=== PATIENT | male | born 1990 | race Caucasian/White ===

== ENCOUNTER 2018-01-21 22:39 | Emergency (ER) | payer OTHER, SELFPAY ==
[2018-01-21 22:40] VITALS: BP 143/83; PULSE 69; RESP 20; TEMP 37.1; O2SAT 100; BMI 25.0
--- NOTE | 2018-01-21 23:34 | CT_ITS ---
STUDY: CT BRAIN WITHOUT CONTRAST REASON FOR EXAM: Male, 27 years old. Headache for 3 days. RADIATION DOSAGE (If Supplied By Facility): CTDIvol = ( 44.99 ) mGy, DLP = ( 779.24 ) mGycm TECHNIQUE: Transaxial CT imaging of the brain was performed without administration of intravenous contrast material. Individualized dose optimization techniques were used for this CT. COMPARISON: None. FINDINGS: Normal soft tissue structures. Normal calvarium. Normal size ventricles and extra-axial spaces for the patient's age. Normal white matter tracts of the cerebral hemispheres. Normal basal ganglia and thalami. Normal brainstem. Normal cerebellum. There is no intracranial hemorrhage. There are no findings of an acute ischemic infarction. Normal visualized paranasal sinuses. CT/Brain/Head without Contrast IMPRESSION: Normal unenhanced CT scan of the brain. Electronically Signed: Trent Magana MD at 0:03 EDT , Service support ,
--- NOTE | 2018-01-21 23:35 | ED.VISSUMM ---
- ER Visit Summary Date of Service: 01/21/18 Chief Complaint: [] Headache History of Present Illness: The patient is a 27 M [] complaining of headache for the last 30 hours. Gradual onset continuous. He has had similar headaches but not this intense. It is a throbbing sensation in his frontal region and somewhat behind his eyes. Is worsened by light. Relieved with dark. He did work today throughout the day. He works in a pizza shop. He does have some photophobia tonight. It seems to wax and wane. He had one remote migraines similar 5 years ago. He has never had imaging. He has been trying intermittent Excedrin and ibuprofen with minimal relief. Patient also noted he had left upper back rash that his saw when he got out of the shower 5 days ago. He has been asymptomatic. There is no pain burning or itching. He has had chickenpox as a child. Physical Examination: [] Vital signs reviewed General: Well-nourished well-developed Head: Normocephalic atraumatic Eyes: Pupils equal round and reactive to light extraocular movements intact ENT: TMs clear no hemotympanum no trauma Neck: Nontender full range of motion Cardiovascular: Regular rate rhythm no murmurs normal S1-S2 Respiratory: No distress clear to auscultation bilaterally chest nontender Abdomen: Soft nontender nondistended normal bowel sounds no masses Back: Nontender no CVA tenderness Extremities: Nontender active range of motion ?4 extremities no trauma Skin: Left mid thoracic paraspinal small patch of rash. It measures 1 x 1. There is mild vesicular nature to it suggestive of shingles. Neuro alert oriented cranial nerves II through XII intact normal strength sensation reflexes Test Results: [] Emergency Department Course and Treatment: [] CT head obtained. Patient given IV fluids Toradol Compazine and Benadryl. Placed on nasal cannula oxygen. Reevaluation his headache is resolved after an hour. CT head negative. At this time I do think the patient likely had a cluster headache versus migraine variant. However he does have a shingles-like rash on his left upper thoracic. This could be causing his headache as well. I do not think he has temporal herpes virus. I do not think he needs an emergent MRI. He is nontoxic resting comfortably. He will follow-up as an outpatient. He will be started on Valtrex as his is . He understands that this likely will not help the rashes is been there for 5 days. Treatment Plan: [] Disposition: [] Impression: [] Headache migraine Shingles rash posterior thoracic This note was generated with [employer] dictation software. It may contain incorrect words, spelling, and punctuation that were not noted in review of the chart prior to signing ED Disposition - Plan for ED Patient: Chief Complaint: Headache
[2018-01-21] MEDS: Ketorolac 30 MG/ML Syringe IV (23:41)
[2018-01-21] MEDS: proCHLORPERazine 10 MG/2 ML Vial IV (23:41)
[2018-01-21] MEDS: DiphenhydrAMINE 50 MG/ML Syringe IV (23:42)
[2018-01-21] MEDS: 0.9% Normal Saline 1,000 ML 999 ML IV (23:42)
[2018-01-21 23:44] VITALS: O2SAT 98
[2018-01-22 00:16] VITALS: RESP 18
--- NOTE | 2018-01-22 00:46 | ED.DEP ---
ED Disposition - Plan for ED Patient: Disposition: Home or Assisted Living Chief Complaint: Headache Instructions: ED Headache Migraine, Shingles (Herpes Zoster) Prescriptions: Valacyclovir HCl [Valtrex] 1,000 mg PO TID 7 Days tab Referrals: Celestino Gonzalez Jr., MD [Primary Care Provider] -
[2018-01-22 00:57] VITALS: PULSE 75; O2SAT 98
== END 2018-01-22 00:59 | disposition home or self-care (01) ==
PROVIDERS: Emergency Provider Emergency Medicine; Family Provider Internal Medicine; PCP Internal Medicine
DX: G43.909 Migraine, unspecified, not intractable, without status migrainosus (principal); B02.9 Zoster without complications
CPT/HCPCS: 70450; 96361; 96374; 96375; 99283; J7030; A4216

== ENCOUNTER 2020-10-28 14:56 | Outpatient (RCR) | payer OTHER, SELFPAY | END 2020-12-21 23:59 | LOC: IMMUN 14:56 | PROVIDERS: PCP Internal Medicine; Referring Provider Family Medicine; Visit Provider Family Medicine | DX: Z23 Encounter for immunization (principal) | CPT/HCPCS: 0001A; 0002A; 91300 ==

== ENCOUNTER 2023-08-26 10:51 | Emergency (ER) | payer OTHER, SELFPAY ==
[2023-08-26 10:53] VITALS: BP 131/85; PULSE 85; RESP 16; TEMP 36.2; O2SAT 97; BMI 27.7
--- NOTE | 2023-08-26 11:13 | RAD_ITS ---
HISTORY: left shoulder injury. TECHNIQUE: XR Shoulder Min 2 Views. COMPARISON: None. FINDINGS: BONES : No acute fracture identified. Mineralization unremarkable. JOINTS: No glenohumeral dislocation. No acromioclavicular subluxation. 1.6 cm periarticular ossification or loose body inferior to the glenohumeral joint SOFT TISSUES: Left lung apex clear. RAD/Shoulder min 2 Views IMPRESSION: No acute fracture or dislocation identified in the left shoulder. Electronically Signed: Shirlene Bee MD at 11:43 EST ,
--- NOTE | 2023-08-26 11:14 | EX.ED.UPPERE ---
HPI History of Present Illness HPI Narrative: 32-year-old male [id number]. Injured his left shoulder yesterday when to have it evaluated. He was running up climbing ramp when he fell with his left arm extended and has had pain in the shoulder since that time with decreased range of motion. Chief Complaint: Upper Extremity Injury Informant: patient Occured/Mechanism Mechanism/Context: Yes injury and Yes blunt trauma Onset/Context/Timing Onset: Yesterday Context: Sudden Onset Timing: Continuous Quality of Pain: Dull and Aching Current Severity: Mild Maximum Severity: Moderate Associated Symptoms Associated Symptoms: Negative for Parasthesia or Loss of Funtion Narrative Narrative: 32-year-old [id number] male no significant past medical history injured his shoulder yesterday running up a climbing ramp when he fell.No prior left shoulder history or surgery. Prior similar symptoms: No Recent Illness/Hospitalization: No PFSH PFSH Medical History no medical history no medical history Home Medications Multivitamins,Ther W-Minerals 07/10/14 [History Last Taken Unknown] valacyclovir 1 gram tablet 1,000 mg PO TID 7 days 01/22/18 [Rx Last Taken Unknown] Allergy/AdvReac Type Severity Reaction Status Date / Time No Known Allergies Allergy Verified 08/26/23 10:52 Surgical History no surgical history no surgical history Social History Smoking Status: Never smoker ROS ROS ED ROS Narrative Recent URI. Review of Systems ROS Unobtainable: Denies due to encephalopathy Constitutional Constitutional ED: Denies chills or fever(s) Eyes Eyes: Denies blurry vision ENT ENT ED: Denies ear pain Cardiovascular Cardiovascular: Denies chest pain or palpitations Respiratory/Chest Respiratory/Chest: Reports cough; Denies dyspnea Gastrointestinal Gastrointestinal: Denies abdominal pain Genitourinary Genitourinary ED: Denies dysuria Musculoskeletal Musculoskeletal: Denies back pain Integumentary Denies abscess Neurologic Neurologic: Denies headache(s) or paresthesias Hematologic/Lymphatic Hematologic/Lymphatic: Denies easy bleeding or easy bruising Allergic/Immunologic Allergic/Immunologic ED: Denies mouth swelling or tongue swelling EXAM Physical Exam Narrative Exam Narrative: 33-year-old male vital signs stable afebrile. HEENT exam unremarkable. Neck nontender. Back nontender. Lungs clear. Heart regular rhythm no murmur. Chest wall and ribs nontender. Abdomen soft nontender. Moving all 4 extremities. He really does not have significant pain to the shoulder itself. He can do full flexion extension at the elbow and the wrist. He has normal leaf size picker strength of his left hand. Normal sensation and radial pulse. There is no bony deformity. He cannot lift his left hand over his shoulder due to pain. He stops it just below shoulder level.Other extremities are normal with normal range of motion. Const Vital Signs: 08/26/23 10:53 Temperature 97.2 F L Temperature Source Temporal Pulse Rate 85 Respiratory Rate 16 Blood Pressure 131/85 H Blood Pressure Mean 100 Pulse Ox 97 Oxygen Delivery Method Room Air Positive well nourished and well developed; Negative for obese, cachectic, contractures or unkempt General Appearance ED: well developed and NAD; Negative for unkempt, cachectic, contractures, cyanotic or diaphoretic Nutritional Appearance: Negative for cachectic or obese HEENT Reports moist mucous membranes normocephalic and atraumatic; Negative for trauma or tenderness Eyes PERRL and EOMs intact bilaterally General Eye ED: Negative for other Neck full ROM and supple General: Negative for tenderness Lymph Lymphatic: Negative for other Chest Wall inspection of chest normal and palpation of chest normal Chest: Negative for other Resp normal respiratory effort and clear to auscultation bilaterally Effort and Inspection: Negative for pain with movement Auscultation: Negative for rales, rhonchi, wheezes or diminished lung sounds Cardio regular rate, regular rhythm, S1 normal heart sound, S2 normal heart sound and no murmurs Rate: Negative for bradycardia or tachycardic Rhythm: Negative for abnormal rhythm GI non-tender, non-distended and no masses Inspection: Negative for abdominal distention Auscultation: normoactive bowel sounds Palpation: soft; Negative for tender or guarding Bladder / Kidney Exam: No other Back/Spine no CVA tenderness General Back: Negative for CVA tenderness Cervical Spine: Negative for cervical spine tenderness and Negative for other Thoracic Spine / Upper Back: Negative for thoracic spinal tenderness Lumbar Spine / Lower Back: Negative for lumbar spinal tenderness Extremity normal to inspection and full ROM Extremity Narrative: Left shoulder nontender. No deformity. No obvious dislocation. He does have limited range of motion with elevation of the shoulder due to discomfort. General Extremety ED: Negative for edema or other findings General Extremity: Negative for edema or other findings Neuro oriented x3, CN's II-XII intact bilaterally, moves all extremities, no focal motor deficits and no sensory deficits noted Sensorium / Orientation: alert, oriented to person, oriented to place and oriented to time; Negative for orientation impaired or lethargic Motor Exam: strength 5/5 throughout Psych mental status grossly normal Appearance: Negative for unkempt Attitude: No agitated Mood & Affect: Negative for depressed, anxious or tearful Skin General Skin Exam: Negative for petechiae Lesions: no lesions Rashes: no rashes Trauma: no lacerations or abrasions; Negative for abrasion or laceration MDM MDM MDM Narrative Medical decision making narrative: 32-year-old male [id number] injured her shoulder yesterday. Has decreased range of motion due to discomfort. X-ray being obtained. This could be a strain. Less likely but potential rotator cuff or other internal shoulder injury. Repeat exam unchanged. Patient was placed in a sling. We discussed his x-ray. There is no fracture. No dislocation there may or may not be a lateral Hill-Sachs deformity. Outpatient follow-up with Dr. Bryant of orthopedics who the patient has established relationship with. Mara for pain and ice. Radiography Diagnostic Testing: Left shoulder x-ray 3 views interpreted by myself the radiologist shows no fracture or dislocation. There is a possible Hill-Sachs deformity of the left lateral humeral head.I went over the x-ray with the patient. Discharge Plan Triage Chief Complaint: Upper Extremity Injury ED Provider: Carlos Pina Dx/Rx/DC Orders Clinical Impression: Sprain of left shoulder Instructions: ED Sprain AC Joint Prescriptions: No Action Multivitamins,Ther W-Minerals valacyclovir 1,000 MG tablet 1,000 mg PO TID 7 Days 0RF Primary Care Provider: Davidson Bo Referrals: Hans Bryant DO [Med Staff - Active Staff] - 1-2 Weeks Davidson Bo MD [Primary Care Provider] - Activity Restrictions/Additional Instructions: You have a sprained shoulder. It is possible that you may have partially subluxed her shoulder. The x-ray does not show any broken bones or dislocation at this time. The lateral aspect of your shoulder may be consistent with a Hill-Sachs deformity which could be caused from a dislocation that reduced Or subluxation. Follow-up with Dr. Bryant. He can review your x-rays and review your shoulder exam. Your range of motion should start coming back if it does not and you are still having significant pain he will decide if he needs to get an MRI. Sling for comfort. Off to shower and sleep. Motrin for pain and inflammation. Disposition Disposition: Home, Self Care
--- OUTSIDE RECORDS SUMMARY | 2023-08-26 11:34 | XMS RPT_ITS | CCD ---
Author Name Unknown Address [facility] [place] [address] Organization [facility] Care Team Providers Care Remnants Cutter Name Role Phone Carlos Gamez MD, Celestino Hernandez Primary Care Provider Anupam IRIZARRY, Kim Evans Primary Care Provider [phone] KIM BO Primary Care Unavailable Allergies Allergy Classification Reported Allergen(s) Allergy Type Date of Onset Reaction(s) Facility (5 sources) Sulfonamides (Antibiotic); Translations: [SULFA (SULFONAMIDE ANTIBIOTICS)] Propensity to adverse reactions 6 Intolerance [facility] Work Phone: (1 source) enviromental [Other] Propensity to adverse reactions 6 [facility] Work Phone: (1 source) OTHER; Translations: [OTHER] Propensity to adverse reactions (disorder) 6 [facility] Repository Medications Current Medications Medication Drug Class(es) Dates Sig (Normalized) Sig (Original) amoxicillin 500 mg oral capsule (3 sources) Penicillin-class Antibacterial Start: 06-06-2023 End: 06-16-2023 take 1 capsule by mouth twice daily amoxicillin (AMOXIL) 500 mg capsule Take 1 capsule by mouth two times a day for 10 days. 20 capsule 0 06/06/2023 06/16/2023 Active Completed/Discontinued Medications Medication Drug Class(es) Dates Sig (Normalized) Sig (Original) loratadine 10 mg oral tablet (4 sources) Start: 01-18-2007 take 1 tablet by mouth once daily as needed loratadine (CLARITIN) 10 mg ORAL Tab Take one(1) tablet daily as needed for allergy symptoms. 0 01/18/2007 Active Problems Problem Classification Problem Date Documented Da te Episodic/Chronic Other upper respiratory infections (1 source) Streptococcal sore throat; Translations: [Streptococcal pharyngitis] 06-06-2023 Episodic Results Test Name Value Interpretation Reference Range Facil ity Vital Signs Date Time Vital Sign Value Performing Clinician Juanita watson 06-06-2023 11:28-0500 Body temperature 97.7 [degF] Josseline Harris [employer] Work Phone: [facility] 06-06-2023 11:28-0500 Body weight 97.25 kg Josselinerobert Harris [employer]CH[employer] Work Phone: [facility] 06-06-2023 11:28-0500 Diastolic blood pressure 80 mm[Hg] Josseline Harris [employer] ME[employer] Work Phone: [facility] 06-06-2023 11:28-0500 Heart rate 76 /min Josseline Harris [employer] Work Phone: [facility] 06-06-2023 11:28-0500 Respiratory rate 16 /min Josseline Harris [employer] MECH[employer] Work Phone: [facility] 06-06-2023 11:28-0500 SaO2% (BldA) [Mass fraction] 96 % Josseline Harris [employer] MECH[employer] Work Phone: [facility] 06-06-2023 11:28-0500 Systolic blood pressure 112 mm[Hg] Josseline Harris [employer] Work Phone: [facility] Encounters Encounter Date Encounter Type Care Provider Facility Start: 06-13-2023 Telephone encounter Kim Bo MD Work Phone: [facility] Procedures Date Procedure Procedure Detail Performing Clinician Start: 06-06-2023 STREP A MOLECULAR (POC) Josseline Harris [employer] Work Phone: Plan of Treatment Date Care Activity Detail Author Start: 06-06-2023 End: 06-20-2023 COVID & INFLUENZA A/B & RSV NAAT, ROUTINE [facility] Work Phone: Immunizations Immunization Date Immunization Notes Care Provider Shelby gutierres 04-24-2022 influenza, injectabl e, quadrivalent, contains preservative Josseline Harris [employer] Work Phone: [facility] 04-24-2022 influenza virus vacc ine, unspecified formulation Josseline Harris [employer] Work Phone: [facility] 11-24-2020 COVID-19 original vaccine, age 12+ yr, monovalent (PFIZER-BIONTECH - PURPLE TOP) Josseline Harris [employer] MECH[employer] Work Phone: [facility] 10-28-2020 COVID-19 original vaccine, age 12+ yr, monovalent (PFIZER-BIONTECH - PURPLE TOP) Josseline Harris [employer] MECH[employer] Work Phone: [facility] Payers Date Payer Category Payer Unknown MMO M[employer] PPO [id number] 2021-Present [phone] [address] [place] [address] PPO [id number] 2021 Unknown [id number] Social History Date Type Detail Facility Start: 04-24-2022 Tobacco smoking stat [facility] Never smoked tobacco [facility] Start: 10-02-2015 End: 06-06-2023 Alcohol intake Current drinker of alcohol (finding) [facility] Start: 01-25-2007 History SDOH Alcohol Comment rare [facility] Start: 1990 Sex Assigned At Not on file [facility] Start: 04-24-2022 Tobacco use and exposure Smokeless tobacco non-user [facility] Start: 08-11-2022 End: 06-06-2023 History of Social function [facility] Work Phone: Start: 08-11-2022 End: 06-06-2023 Tobacco use panel [facility] Work Phone: Adult Depression Screening Assessment 0 [facility] Work Phone: Note 06-13-2023 Telephone Encounter - Cora Langley RN - 06/13/2023 10:15 AM ESTTelephone Encounter - Stanislaw Gaxiola - 06/13/2023 10:06 AM ESTTelephone Encounter - Kim Bo MD - 06/13/2023 9:36 AM EST Note Date & Type Note Facility 06-13-2023 Miscellaneous Notes Formattin g of this note might be different from the original. Patient returns call and provider message reviewed. Patient verbalizes understanding. Cora Langley RN Left message to return call to office. Stanislaw Gaxiola Agree. Usually for one day of sinus congestion, we ordinarily would not start an antibiotic but if he had symptoms of sinus congestion for one to two weeks, amoxil would also be the drug of choice. Patient reports he was seen in on 06-06 and treated with amoxicillin for strep throat. His throat has improved, but yesterday and this morning, having sinus pressure, sinus LONG, and blowing out vibrant yellow/green mucous (no other symptoms). Asking if the amoxicillin would help with these symptoms. Did advise patient if the sinus symptoms are related to a virus, the AB would not help, and he could try using saline flush, such as neti pot or simply saline, which is helpful in flushing out irritants in nose. Patient agreeable, but would like pcp opinion on this. Please advise patient. documented in this encounter [facility] Note 06-07-2023 Telephone Encounter - Sophy Storey LPN - 06/07/2023 8:03 AM ESTTelephone Encounter - Jennifer Hair APRN.CNP - 06/07/2023 7:57 AM EST Note Date & Type Note Facility 06-07-2023 Miscellaneous Notes Formattin g of this note might be different from the original. Patient notified.Sophy Storey LPN Please notify of negative covid, flu, and rsv test. Continue comfort measures for symptoms as you would for a cold. Any worsening symptoms follow up with PCP or ER. Jennifer Hair APRN.MARGARET documented in this encounter [facility] Progress note 06-06-2023 Note Date & Type Note Facility 06-06-2023 Note HNO ID: [id number] Author: Josseline Harris APRN.MARGARET Service: ? Author Type: Nurse Practitioner Type: Progress Notes Filed: 06/06/2023 1:31 PM Note Text: This note was created using PerceptiMedriter. Subjective Gregorio Mercado is a 32 year old male. 32 year old female with no PMH presents for illness. Acute onset 3 days ago +sore throat +cough +runny nose +congestion +body aches Denies CP. Denies SOB Denies dyspnea Denies tobacco usage. The history is provided by the patient. No pediatric speech language pathologist was used. Cough This is a new problem. The current episode started more than 2 days ago. The problem occurs constantly. The problem has been gradually worsening. The cough is Non-productive. There has been no fever. Associated symptoms include headaches, rhinorrhea, sore throat and myalgias. Pertinent negatives include no chest pain, no chills, no sweats, no weight loss, no ear congestion, no ear pain, no shortness of breath, no wheezing and no eye redness. He has tried nothing for the symptoms. The treatment provided no relief. He is not a smoker. His past medical history does not include bronchitis, pneumonia, bronchiectasis, COPD, emphysema or asthma. PAST MEDICAL HISTORY Diagnosis Date allergic rhinitis 01/25/2007 PAST SURGICAL HISTORY Procedure Laterality Date PAST SURGICAL HISTORY OF 2001 Left knee - cyst removed ALLERGIES Sulfa (Sulfonamide Antibiotics) MEDICATIONS loratadine (CLARITIN) 10 mg ORAL Tab Take one(1) tablet daily as needed for allergy symptoms. amoxicillin (AMOXIL) 500 mg capsule Take 1 capsule by mouth two times a day for 10 days. FAMILY HISTORY Problem Relation Age of Onset None Father None Mother Cancer Paternal Grandfather Prostate None Paternal Grandmother Cancer Maternal Grandfather Esophageal None Maternal Grandmother Social History Tobacco Use Smoking status: Never Smokeless tobacco: Never Substance Use Topics Alcohol use: Yes Comment: rare Drug use: No Review of Systems Constitutional: Positive for fatigue and fever. Negative for chills and weight loss. HENT: Positive for congestion, rhinorrhea and sore throat. Negative for ear pain. Eyes: Negative for pain, discharge, redness and itching. Respiratory: Positive for cough. Negative for apnea, choking, chest tightness, shortness of breath and wheezing. Cardiovascular: Negative for chest pain, palpitations and leg swelling. Gastrointestinal: Negative for abdominal pain, diarrhea, nausea and vomiting. Musculoskeletal: Positive for myalgias. Negative for arthralgias and back pain. Skin: Negative for color change, pallor, rash and wound. Allergic/Immunologic: Negative for environmental allergies, food allergies and immunocompromised state. Neurological: Positive for headaches. Hematological: Negative for adenopathy. Does not bruise/bleed easily. Psychiatric/Behavioral: Negative for agitation and behavioral problems. Objective BP 112/80 Pulse 76 Temp 36.5 ?C (97.7 ?F) (Tympanic) Resp 16 Wt 97.3 kg (214 lb 6.4 oz) SpO2 96% BMI 29.08 kg/m? Physical Exam Vitals and nursing note reviewed. Constitutional: General: He is not in acute distress. Appearance: Normal appearance. He is not ill-appearing, toxic-appearing or diaphoretic. HENT: Head: Normocephalic and atraumatic. Right Ear: External ear normal. Left Ear: External ear normal. Nose: Congestion present. No rhinorrhea. Mouth/Throat: Mouth: Mucous membranes are moist. Pharynx: Oropharynx is clear. Posterior oropharyngeal erythema present. No oropharyngeal exudate. Eyes: General: Right eye: No discharge. Left eye: No discharge. Extraocular Movements: Extraocular movements intact. Conjunctiva/sclera: Conjunctivae normal. Pupils: Pupils are equal, round, and reactive to light. Cardiovascular: Rate and Rhythm: Normal rate and regular rhythm. Pulses: Normal pulses. Heart sounds: Normal heart sounds. No murmur heard. No friction rub. No gallop. Pulmonary: Effort: Pulmonary effort is normal. No respiratory distress. Breath sounds: Normal breath sounds. No stridor. No wheezing, rhonchi or rales. Chest: Chest wall: No tenderness. Abdominal: General: Abdomen is flat. There is no distension. Palpations: Abdomen is soft. There is no mass. Tenderness: There is no abdominal tenderness. There is no guarding or rebound. Hernia: No hernia is present. Musculoskeletal: General: No swelling, tenderness, deformity or signs of injury. Normal range of motion. Cervical back: Normal range of motion and neck supple. No rigidity or tenderness. Right lower leg: No edema. Left lower leg: No edema. Lymphadenopathy: Cervical: Cervical adenopathy present. Skin: General: Skin is warm and dry. Capillary Refill: Capillary refill takes less than 2 seconds. Coloration: Skin is not jaundiced or pale. Findings: No bruising, lesion or rash. Neurological: (more content not included)... [facility] History of Present illness Narrative 06-06-2023 Josseline Harris APRN.[facility] - 06/06/2023 11:33 AM EST Note Date & Type Note Facility 06-06-2023 History of Presen t illness Narrative This note was created using Naartjie. Subjective Gregorio Mercado is a 32 year old male. 32 year old female with no PMH presents for illness. Acute onset 3 days ago +sore throat +cough +runny nose +congestion +body aches Denies CP. Denies SOB Denies dyspnea Denies tobacco usage. The history is provided by the patient. No pediatric speech language pathologist was used. Cough This is a new problem. The current episode started more than 2 days ago. The problem occurs constantly. The problem has been gradually worsening. The cough is Non-productive. There has been no fever. Associated symptoms include headaches, rhinorrhea, sore throat and myalgias. Pertinent negatives include no chest pain, no chills, no sweats, no weight loss, no ear congestion, no ear pain, no shortness of breath, no wheezing and no eye redness. He has tried nothing for the symptoms. The treatment provided no relief. He is not a smoker. His past medical history does not include bronchitis, pneumonia, bronchiectasis, COPD, emphysema or asthma. PAST MEDICAL HISTORY Diagnosis Date allergic rhinitis 01/25/2007 PAST SURGICAL HISTORY Procedure Laterality Date PAST SURGICAL HISTORY OF 2001 Left knee - cyst removed ALLERGIES Sulfa (Sulfonamide Antibiotics) MEDICATIONS loratadine (CLARITIN) 10 mg ORAL Tab Take one(1) tablet daily as needed for allergy symptoms. amoxicillin (AMOXIL) 500 mg capsule Take 1 capsule by mouth two times a day for 10 days. FAMILY HISTORY Problem Relation Age of Onset None Father None Mother Cancer Paternal Grandfather Prostate None Paternal Grandmother Cancer Maternal Grandfather Esophageal None Maternal Grandmother Social History Tobacco Use Smoking status: Never Smokeless tobacco: Never Substance Use Topics Alcohol use: Yes Comment: rare Drug use: No Review of Systems Constitutional: Positive for fatigue and fever. Negative for chills and weight loss. HENT: Positive for congestion, rhinorrhea and sore throat. Negative for ear pain. Eyes: Negative for pain, discharge, redness and itching. Respiratory: Positive for cough. Negative for apnea, choking, chest tightness, shortness of breath and wheezing. Cardiovascular: Negative for chest pain, palpitations and leg swelling. Gastrointestinal: Negative for abdominal pain, diarrhea, nausea and vomiting. Musculoskeletal: Positive for myalgias. Negative for arthralgias and back pain. Skin: Negative for color change, pallor, rash and wound. Allergic/Immunologic: Negative for environmental allergies, food allergies and immunocompromised state. Neurological: Positive for headaches. Hematological: Negative for adenopathy. Does not bruise/bleed easily. Psychiatric/Behavioral: Negative for agitation and behavioral problems. Objective BP 112/80 Pulse 76 Temp 36.5 C (97.7 F) (Tympanic) Resp 16 Wt 97.3 kg (214 lb 6.4 oz) SpO2 96% BMI 29.08 kg/m Physical Exam Vitals and nursing note reviewed. Constitutional: General: He is not in acute distress. Appearance: Normal appearance. He is not ill-appearing, toxic-appearing or diaphoretic. HENT: Head: Normocephalic and atraumatic. Right Ear: External ear normal. Left Ear: External ear normal. Nose: Congestion present. No rhinorrhea. Mouth/Throat: Mouth: Mucous membranes are moist. Pharynx: Oropharynx is clear. Posterior oropharyngeal erythema present. No oropharyngeal exudate. Eyes: General: Right eye: No discharge. Left eye: No discharge. Extraocular Movements: Extraocular movements intact. Conjunctiva/sclera: Conjunctivae normal. Pupils: Pupils are equal, round, and reactive to light. Cardiovascular: Rate and Rhythm: Normal rate and regular rhythm. Pulses: Normal pulses. Heart sounds: Normal heart sounds. No murmur heard. No friction rub. No gallop. Pulmonary: Effort: Pulmonary effort is normal. No respiratory distress. Breath sounds: Normal breath sounds. No stridor. No wheezing, rhonchi or rales. Chest: Chest wall: No tenderness. Abdominal: General: Abdomen is flat. There is no distension. Palpations: Abdomen is soft. There is no mass. Tenderness: There is no abdominal tenderness. There is no guarding or rebound. Hernia: No hernia is present. Musculoskeletal: General: No swelling, tenderness, deformity or signs of injury. Normal range of motion. Cervical back: Normal range of motion and neck supple. No rigidity or tenderness. Right lower leg: No edema. Left lower leg: No edema. Lymphadenopathy: Cervical: Cervical adenopathy present. Skin: General: Skin is warm and dry. Capillary Refill: Capillary refill takes less than 2 seconds. Coloration: Skin is not jaundiced or pale. Findings: No bruising, lesion or rash. Neurological: General: No focal deficit present. Mental Status: He is alert and oriented to person, place, and time. Cranial Nerves: No cranial nerve deficit. Sensory: No sensory deficit. Motor: No weakness. Coordination: Coordination normal. Gait: Gait normal. Deep Tendon Reflexes: Reflexes normal. Psychiatric: Mood and Affect: Mood normal. Behavior: Behavior normal. Thought Content: Thought content normal. Assessment and Plan ASSESSMENT/PLAN: 1. Strep pharyngitis - ICD9: 034.0, ICD10: J02.0 X 2 days No red flags - suspect viral - Rapid Strep positive in the office today - Group A strep molecular testing positive - antibiotic as written - Discussed supportive care treatment with fluids, rest and analgesia. - The patient may also use OTC cough and cold meds as needed, warm salt water gargles, throat lozenges and/or OTC throat spray as needed, and nasal saline gtts and suction prn. - Contagious dz precautions discussed- including considered contagious until on antibiotics for 24 hours - The patient should follow up in 3-5 days if symptoms persist or worsen - Call back if drooling, increased temperature, symptoms of dehydration and/or still sick in one week - STREP A MOLECULAR (POC) - COVID & INFLUENZA A/B & RSV NAAT, ROUTINE Josseline Harris APRN.[employer] documented in this encounter [facility] Note 02-03-2022 Telephone Encounter - Sherry Horner LPN - 02/03/2022 5:14 PM EDTTelephone Encounter - Sherry Horner LPN - 02/01/2022 5:09 PM EDTTelephone Encounter - Kim Bo MD - 02/01/2022 12:44 PM EDT Note Date & Type Note Facility 02-03-2022 Miscellaneous Notes Scheduled. Left message with last phone number that is listed in chart. If patient does not have a current PCP and family is patient can be put in a physical spot on Dr Bo schedule. Will need chart updated. Verify his relatives are indeed patients of mine. If they are I can. Pt called in to see if Dr. Bo would be willing to see him? He said that his grandfather and brother both see Dr. Bo. Please advise pt either way. Cordelia Vega documented in this encounter [facility] Evaluation note Note Date & Type Note Facility documented in this encounter [facility] Health Concerns Infection Onset Date Last Indicated Resolved Time COVID-19 Rule-Out 06/06/2023 06/06/2023 Infection Onset Date Last Indicated Resolved Time COVID-19 Rule-Out 06/06/2023 06/06/2023 06/07/2023 1:19 AM EST Summary Purpose Family History No Family History Records Found Advance Directives No Advanced Directives Records Found Additional Source Comments Source Comments (unrecognize d section and content) In the event this informatio n is protected by the [facility] Confidentiality of Alcohol and Drug Abuse Patient Records regulations: The Federal rules restrict any use of the information to criminally investigate or prosecute any alcohol or drug abuse patient.[facility] the event this information is protected by the Federal Confidentiality of Alcohol and Drug Abuse Patient Records regulations: The Federal rules restrict any use of the information to criminally investigate or prosecute any alcohol or drug abuse patient.[facility] the event this information is protected by the Federal Confidentiality of Alcohol and Drug Abuse Patient Records regulations: The Federal rules restrict any use of the information to criminally investigate or prosecute any alcohol or drug abuse patient.[facility] the event this information is protected by the Federal Confidentiality of Alcohol and Drug Abuse Patient Records regulations: The Federal rules restrict any use of the information to criminally investigate or prosecute any alcohol or drug abuse patient.[facility] Reason for Visit (unrecogniz ed section and content) Reason Comments Cough Cough, ST, runny nos e, bodyaches and congestion x 3 days Reason Comments Results Care Teams (unrecognized sec tion and content) Remnants Cutter Relationship Specialty Start Date End Date Kim Bo MD [address] [place], [place] [id number] PCP - [facility] 04/24/22 Remnants Cutter Relationship Specialty Start Date End Date Kim Bo MD [address] [place], [place] [id number] PCP - [facility] 04/24/22 Remnants Cutter Relationship Specialty Start Date End Date Kim Bo MD [address] [place], [place] [id number] PCP - General Family Medicine 04/24/22 (unrecognized sect ion and content) No Status Records Found INFORMATION SOURCE (unrecogn ized section and content) FOR RECORDS PERTAINING TO PATIENTS WHO ARE OR HAVE BEEN ENROLLED IN A CHEMICAL DEPENDENCY/SUBSTANCEABUSE PROGRAM, SOME INFORMATION MAY BE OMITTED. This clinical summary was aggregated from multiple sources. Caution should be exercised in using it in the provision of clinical care. This summary normalizes information from multiple sources, and as a consequence, information in this document may materially change the coding, format and clinical context of patient data. In addition, data may be omitted in some cases. CLINICAL DECISIONS SHOULD BE BASED ON THE PRIMARY CLINICAL RECORDS. [facility] [employer] [facility]. provides no warranty or guarantee of the accuracy or completeness of information in this document.
== END 2023-08-26 12:07 | disposition home or self-care (01) ==
PROVIDERS: Emergency Provider Emergency Medicine; PCP Family Medicine; Visit Provider Emergency Medicine
DX: S43.402A Unspecified sprain of left shoulder joint, initial encounter (principal); W10.2XXA Fall (on)(from) incline, initial encounter
CPT/HCPCS: 73030; 99283

== ENCOUNTER 2024-01-23 17:30 | Outpatient (RCR) | payer OTHER, SELFPAY ==
--- NOTE | 2023-10-31 18:33 | HP.PTEVAL ---
Patient's Visit Information Visit Information Visit Information: CHRISTOS BLANCAS III is a 32 year old M referred to Physical Therapy by NIKKI LANE with a diagnosis of s/p L arthro ant/inf labrum and glenoid fixation 10/03/23. Date of Evaluation: 10/31/23 Physical Therapist: ANTONI Lorenz Visit Plan Frequency: 1-2x /Week Duration: 4 Months Plan: 1-2X/ week for 12-16 weeks for L shoulder PROM/AAROM to 120 degrees flexion, 90 ABD and 20 degrees ER until 6 weeks post op 6 weeks post op unlimited PROM/AAROM fW elevation and may begin AROM in all planes, resisted isometric ER/IR and scapular stabilizers 8 weeks may start some resistance bands to limitations listed on protocol in folder HEP: supine wand flex to 120, ER to 20, and scapular retraction Subjective Subjective: He had a goofy fall back in Aug and tore his labrum and broke off his glenoid and went into surgery. His DOS was 10/03/23 and he had a L arthroscopic anterior-inf labrum replar and glenoid fixation. Today he was able to get out of his sling. He is sleeping well. Pain L shoulder pain: Pain Intensity (Out of 10): 0 Objective Objective: L handed L shoulder PROM flexion 120 degrees, ER 20 degrees Pt is able able to AAROM wand flexion to 120 degrees and ER 20 R shoulder FULL AROM Balance/Special Test Scores Quick DASH Score: 68.1800 Goals Goal 1:: I HEP Goal Time Frame: 8-12 Weeks Goal 2:: Increase L shoulder to full AROM in all planes Goal Time Frame: 8-12 Weeks Goal 3:: Increase L shoulder strength to within 2# of the R by DC Goal 4:: Return to golfing Rehabilitation Potential Rehabilitation Potential: Good Anticipated Interventions Patient/Client Instruction: Educate patient on: Condition and Plan of Care For the Purpose of:: To decrease pain, To increase ROM, To improve nutrient delivery to tissue, To improve muscle performance and motor function, To improve ability to perform ADL's, To increase tolerance to activity/condition/position, To improve performance and independence with ADL's, To decrease level of supervision to perform tasks, To improve health of tissue, To decrease soft tissue restriction and To increase flexibility/ROM Therapeutic Exercise to Include: Strength training, Postural training, Flexibilty training, Neuromotor development, Passive ROM, Active ROM and Scapular Strength/Stabilization For the Purpose of:: To decrease pain, To increase ROM, To improve nutrient delivery to tissue, To improve muscle performance and motor function, To improve ability to perform ADL's, To increase tolerance to activity/condition/position, To improve performance and independence with ADL's, To decrease level of supervision to perform tasks, To improve ability of physical actions for home/community/work/leisure, To improve gait and locomotor functions, To decrease soft tissue restriction and To increase flexibility/ROM Manual Therapy Techniques to Include: Passive ROM For the Purpose of:: To increase ROM, To improve health of tissue and To decrease soft tissue restriction Text: Thank you for the opportunity to evaluate your patient. For Medicare and Medicare HMO plans, please review the plan of care and approve it. It will need to be FAXED BACK to us at [phone] for Medicare purposes. For Medicare only, by signing this I certify the plan of care. Please let me know if there are questions or concerns regarding this plan of care. Physician Signature: Date:
--- NOTE | 2023-12-19 19:00 | HP.PTREVAL ---
Re-Evaluation Intro: NIKKI LANE, It has been my pleasure to treat CHRISTOS BLANCAS III over the last 11 visits for s/p L arthro ant/inf labrum and glenoid fixation 10/03/23. Please see the progress note below for an update on the physical therapy plan of care! Subjective Subjective: He sees the Dr on the for a re check. He feels 50% improved. Still feels tight but still stretching Objective Objective/Function: UE MMT R 17.4 and L 16.8 ER R 20.3 and L 19.4 IR R 18.9 and L 17.9 flexion R shoulder ABD 17.6 and L 16.2 Pt is tight at the very end range flexion and ER on the L Plan Plan Plan: 1-2X/ week for 12-16 weeks for 6 weeks post-op Left shoulder unlimited PROM/AAROM fW elevation and may begin AROM in all planes. 8 weeks may start some resistance bands to limitations listed on protocol in folder Balance/Gait/Functional tests Balance/Special Test Scores Quick DASH Score: 4.5450 Goals Goals Goal 1:: I HEP Goal Time Frame: 8-12 Weeks Goal 2:: Increase L shoulder to full AROM in all planes Goal Time Frame: 8-12 Weeks Goal 3:: Increase L shoulder strength to within 2# of the R by DC Goal 4:: Return to golfing Anticipated Interventions Anticipated Interventions Patient/Client Instruction: Educate patient on: Condition and Plan of Care For the Purpose of:: To decrease pain, To increase ROM, To improve nutrient delivery to tissue, To improve muscle performance and motor function, To improve ability to perform ADL's, To increase tolerance to activity/condition/position, To improve performance and independence with ADL's, To decrease level of supervision to perform tasks, To improve health of tissue, To decrease soft tissue restriction and To increase flexibility/ROM Therapeutic Exercise to Include: Strength training, Postural training, Flexibilty training, Neuromotor development, Passive ROM, Active ROM and Scapular Strength/Stabilization For the Purpose of:: To decrease pain, To increase ROM, To improve nutrient delivery to tissue, To improve muscle performance and motor function, To improve ability to perform ADL's, To increase tolerance to activity/condition/position, To improve performance and independence with ADL's, To decrease level of supervision to perform tasks, To improve ability of physical actions for home/community/work/leisure, To improve gait and locomotor functions, To decrease soft tissue restriction and To increase flexibility/ROM Manual Therapy Techniques to Include: Passive ROM For the Purpose of:: To increase ROM, To improve health of tissue and To decrease soft tissue restriction Re-Evaluation Ending Re-evaluation ending: Please do not hesitate to contact me at [phone] by phone or if you have questions or concerns regarding this new plan of care! Sincerely, Adilene Rodriguez, MPT
--- NOTE | 2024-01-23 18:33 | HP.PTDCSUM ---
Discharge Summary D/C summary: It has been my pleasure to treat CHRISTOS BLANCAS III referred by NIKKI LANE, with the diagnosis of s/p L arthro ant/inf labrum and glenoid fixation 10/03/23 for a total of 17 visit(s). Discharge Date: 01/23/24 Please see the following information for a summary of their discharge status. Subjective Subjective: L handed. He has been throwing a little football and he threw 20 feet and felt stiff but no pain. His end range is still a little less than full Pt feels comfortable doing a HEP from here Pain L shoulder pain: Pain Intensity (Out of 10): 0 Overall Improvement % Improvement: 90 Objective Objective/Function: UE MMT R 16.8 and L 19.5 ER R 20.3 and L 24.4 R 18.9 and L 18.6 flexion R shoulder ABD 17.6 and L 19 Pt is still tight at end range flexion Posture: protracted L shoulder (encouraged pt to work on scapular retraction and muscles T's Y's Rows etc) Pt is still tight at end range flexion and encouraged doorway stretch, standing wand flexion stretch for HEP Goals Goal 1:: I HEP Goal Progress: Goal Met Goal 2:: Increase L shoulder to full AROM in all planes Goal Progress: Progressing Goal 3:: Increase L shoulder strength to within 2# of the R by DC Goal Progress: Goal Met Goal 4:: Return to golfing Goal Progress: Progressing Plan Plan: DC PT to HEP. D/C Information Discharge Comments: DC PT to HEP d/c sentence: If there are questions or concerns regarding this patient's physical therapy, please feel free to call me at [phone]. Thank you for the referral of this patient. Sincerely, Adilene Rodriguez, MPT Balance/Gait/Functional tests Balance/Special Test Scores Quick DASH Score: 0 Improvement % Improvement: 90
== END 2024-01-23 19:00 | disposition home or self-care (01) ==
LOC: PT 17:30
PROVIDERS: PCP Family Medicine
DX: S42.145D Nondisplaced fracture of glenoid cavity of scapula, left shoulder, subsequent encounter for fracture with routine healing (principal); S43.432D Superior glenoid labrum lesion of left shoulder, subsequent encounter
CPT/HCPCS: 97110; 97161; 97530